=== PATIENT | male | born 1985 | race African-American/Black ===

== ENCOUNTER 2017-06-01 01:54 | Emergency (ER) | payer MEDICAID ==
[~2017-06-01] VITALS: Ht 188 cm; Wt 86.0 kg
[2017-06-01 02:08] VITALS: BP 119/64
== END 2017-06-01 05:45 | disposition left against medical advice (07) ==
LOC: ER 02:19
DX: Z00.8 Encounter for other general examination (principal); Z53.21 Procedure and treatment not carried out due to patient leaving prior to being seen by health care provider